=== PATIENT | male | born 1960 | race Caucasian/White ===

== ENCOUNTER 2021-11-05 15:43 | Inpatient (IN) | payer OTHER ==
[2021-11-05] MEDS ORDERED: SODIUM CHLORIDE 0.9% 1,000 ML IV STA ×2 (16:02)
[2021-11-05] MEDS ORDERED: MORPHINE SULFATE 4 MG/ML SYRINGE IVP STA (16:05)
--- NOTE | 2021-11-05 16:06 | ED ---
Dizziness HPI - General Stated Complaint: dizziness Time Seen by Provider: 11/05/21 15:43 Source: patient, family, EMS, RN notes reviewed Mode of arrival: EMS - History of Present Illness Initial Comments: This is a 61-year-old male brought in by EMS with a history of squamous cell cancer the time now with metastatic disease who presents with complaints of dizziness lightheadedness weakness The pain in the right side of his neck and head he is currently on chemotherapy. Patient does have decrease oral intake. No fall MD Complaint: dizziness, lightheadedness, other - Related Data Home Medications Medication Instructions Recorded Confirmed Acetaminophen Oral Susp [Tylenol] 640 mg PO Q4H PRN 11/05/21 11/05/21 Amitriptyline HCl [Elavil] 25 - 50 mg PO HS PRN 11/05/21 11/05/21 Morphine Sulfate Ir [MSIR] 15 mg PO Q4H PRN 11/05/21 11/05/21 fentaNYL 25MCG/HR PATCH [Duragesic 1 patch TRANSDERM Q72H 11/05/21 11/05/21 25MCG/HR] Allergies Allergy/AdvReac Type Severity Reaction Status Date / Time Penicillins Allergy Rash/Hives Verified 11/05/21 16:38 Review of Systems ROS Statement: Those systems with pertinent positive or pertinent negative responses have been documented in the HPI. ROS Other: All systems not noted in ROS Statement are negative. General Exam - General Exam Comments Initial Comments: This is a well-developed asthenic appearing male who is awake alert oriented 3 Limitations: physical limitation General appearance: alert, lethargic Head exam: Present: atraumatic, normocephalic, normal inspection Eye exam: Present: normal appearance, PERRL, EOMI. Absent: scleral icterus, conjunctival injection, periorbital swelling ENT exam: Present: mucous membranes dry Neck exam: Present: full ROM, other (Tracheostomy site patent no stridor JVD or bruits) Respiratory exam: Present: normal lung sounds bilaterally. Absent: respiratory distress, wheezes, rales, rhonchi, stridor Cardiovascular Exam: Present: regular rate, normal rhythm, normal heart sounds. Absent: systolic murmur, diastolic murmur, rubs, gallop, clicks Course Vital Signs 11/05/21 11/05/21 15:56 17:38 Temperature 98.7 F Pulse Rate 93 702 H Respiratory 18 18 Rate Blood Pressure 117/75 111/67 O2 Sat by Pulse 98 100 Oximetry EKG Findings - EKG Results: EKG: interpreted by YARITZA, sinus rhythm (Sinus rhythm 85 FL interval 155 QRS duration 97 for QTC 373/4:15 nonspecific inferior configuration no acute ST-T wave elevation or depressions) Medical Decision Making - Medical Decision Making I did reevaluate patient on multiple occasions he is not getting much pain relief the pain medicine administer thus far he still feeling weak still having right-sided head neck pain. I did discuss the findings with patient's family was also present the patient and family have elected to go on hospice care. Patient will be admitted with hospice consultation. I did discuss with Dr. De Luna who is in agreement. - Lab Data Result diagrams: 11/05/21 16:19 11/05/21 16:19 Lab Results 11/05/21 11/05/21 11/05/21 Range/Units 16:19 16:19 16:25 WBC 6.4 (3.8-10.6) k/uL RBC 4.45 (4.30-5.90) m/uL Hgb 13.5 (13.0-17.5) gm/dL Hct 40.2 (39.0-53.0) % MCV 90.4 (80.0-100.0) fL MCH 30.2 (25.0-35.0) pg MCHC 33.4 (31.0-37.0) g/dL RDW 16.9 H (11.5-15.5) % Plt Count 488 H (150-450) k/uL MPV 6.9 Neutrophils % 88 % Lymphocytes % 5 % Monocytes % 5 % Eosinophils % 1 % Basophils % 0 % Neutrophils # 5.6 (1.3-7.7) k/uL Lymphocytes # 0.3 L (1.0-4.8) k/uL Monocytes # 0.3 (0-1.0) k/uL Eosinophils # 0.0 (0-0.7) k/uL Basophils # 0.0 (0-0.2) k/uL Anisocytosis Slight Sodium 136 L (137-145) mmol/L Potassium 4.3 (3.5-5.1) mmol/L Chloride 102 (98-107) mmol/L Carbon Dioxide 21 L (22-30) mmol/L Anion Gap 13 mmol/L BUN 26 H (9-20) mg/dL Creatinine 0.85 (0.66-1.25) mg/dL Est GFR (CKD-EPI)AfAm >90 (>60 ml/min/1.73 sqM) Est GFR (CKD-EPI)NonAf >90 (>60 ml/min/1.73 sqM) Glucose 133 H (74-99) mg/dL Calcium 9.9 (8.4-10.2) mg/dL Magnesium 2.0 (1.6-2.3) mg/dL Total Bilirubin 0.7 (0.2-1.3) mg/dL AST 35 (17-59) U/L ALT 33 (4-49) U/L Alkaline Phosphatase 190 H (38-126) U/L Creatine Kinase 109 (55-170) U/L Total Protein 7.3 (6.3-8.2) g/dL Albumin 4.0 (3.5-5.0) g/dL Coronavirus (PCR) Not Detected (Not Detectd) - Radiology Data Radiology results: report reviewed (Imaging and report reviewed no evidence of acute disease.), image reviewed Disposition Clinical Impression: Metastatic squamous cell carcinoma, Dehydration, Intractable pain, Failure to thrive in adult Disposition: ADMITTED IP TO THIS HOSP Condition: Poor Referrals: Kip De Luna MD [Primary Care Provider] - 1-2 days
[2021-11-05 16:41] LABS: Anisocytosis Slight; Basophils % (A) 0 %; Eosinophils % (A) 1 %; HCT 40.2 % (39.0-53.0); HGB 13.5 gm/dL (13.0-17.5); Lymphocytes # (A) 0.3 k/uL (1.0-4.8); Lymphocytes % (A) 5 %; MCH 30.2 pg (25.0-35.0); MCHC 33.4 g/dL (31.0-37.0); MCV 90.4 fL (80.0-100.0); Mean Platelet Volume 6.9; Monocytes # (A) 0.3 k/uL (0-1.0); Monocytes % (A) 5 %; Neutrophils # (A) 5.6 k/uL (1.3-7.7); Neutrophils % (A) 88 %; Platelet Count 488 k/uL (150-450); RBC 4.45 m/uL (4.30-5.90); RDW 16.9 % (11.5-15.5); WBC 6.4 k/uL (3.8-10.6)
[2021-11-05 16:51] LABS: ALT 33 U/L (4-49); AST 35 U/L (17-59); African American GFR (CKD) >90 (>60 ml/min/1.73 sqM); Alkaline Phosphatase 190 U/L (38-126); Anion Gap 13 mmol/L; Blood Urea Nitrogen 26 mg/dL (9-20); Calcium 9.9 mg/dL (8.4-10.2); Carbon Dioxide 21 mmol/L (22-30); Chloride 102 mmol/L (98-107); Creatine Kinase 109 U/L (55-170); Glucose 133 mg/dL (74-99); Non-African American GFR(CKD) >90 (>60 ml/min/1.73 sqM); Potassium 4.3 mmol/L (3.5-5.1); Sodium 136 mmol/L (137-145); Total Bilirubin 0.7 mg/dL (0.2-1.3); Total Protein 7.3 g/dL (6.3-8.2)
--- NOTE | 2021-11-05 17:07 | XR ---
EXAMINATION TYPE: XR chest 2V DATE OF EXAM: 11/05/2021 COMPARISON: NONE HISTORY: Dizziness TECHNIQUE: 3 views FINDINGS: Heart is normal. Lungs are clear of consolidation. There are multiple surgical clips over t he left axilla. There are chest leads. There is no pleural effusion. Bony thorax is intact. IMPRESSION: No active cardiopulmonary disease. Normal heart.
[2021-11-05] MEDS ORDERED: HYDROmorphone 1 MG/ML 1 ML SYRINGE IVP STA (17:38)
[2021-11-05] MEDS ORDERED: NALOXONE 0.4 MG/ML 1 ML VIAL IV PRN (18:02)
[2021-11-05] MEDS ORDERED: AMITRIPTYLINE HCL 50 MG TAB PO PRN (18:04)
[2021-11-05] MEDS ORDERED: MORPHINE SULFATE IR 15 MG TABLET PO PRN (18:04)
[2021-11-05] MEDS ORDERED: ACETAMINOPHEN ORAL SUSP 160 MG/5 ML CUP PO PRN (18:04)
[2021-11-05] MEDS: SODIUM CHLORIDE 0.9% 1,000 ML IV SCH (18:49)
[2021-11-05] MEDS: HYDROmorphone 1 MG/ML 1 ML SYRINGE IVP PRN (21:29)
[2021-11-06] MEDS: HYDROmorphone 1 MG/ML 1 ML SYRINGE IVP PRN ×3 (02:27→10:32)
[2021-11-06 04:02] VITALS: BP 140/85; PULSE 66; RESP 20; TEMP 97.6
[2021-11-06] MEDS: SODIUM CHLORIDE 0.9% 1,000 ML IV SCH ×2 (06:05→10:35)
--- NOTE | 2021-11-06 14:34 | P.HPIM ---
History of Present Illness H&P Date: 11/06/21 Chief Complaint: vertigo, pain, weakness Osmani Son is a 61 yo M with PMH of squamous cell carcinoma of the tongue, follows with [facility], s/p radiation therapy, tracheostomy who presented to the ED via EMS with increasing pain, weakness and dizziness. He states he has not had much PO intake over the past few weeks and has no energy. Has become dizzy and unable to move around at home. He denies increased secretions though his tracheostomy. No shortness of breath, fever, chills. On presentation, vitals stable, labs significant for sodium 136, Covid negative. CXR and EKG unremarkable. Review of Systems All systems: negative Constitutional: Reports malaise, Reports weakness, Reports weight loss, Denies chills, Denies fever Eyes: denies blurred vision, denies pain Ears, nose, mouth and throat: Denies headache, Denies sore throat Cardiovascular: Denies chest pain, Denies shortness of breath Respiratory: Denies cough Gastrointestinal: Reports as per HPI, Reports loss of appetite, Denies abdominal pain, Denies diarrhea, Denies nausea, Denies vomiting Musculoskeletal: Denies myalgias Integumentary: Denies pruritus, Denies rash Neurological: Denies numbness, Denies weakness Psychiatric: Denies anxiety, Denies depression Endocrine: Denies fatigue, Denies weight change Past Medical History Additional Past Medical History / Comment(s): Tongue and throat cancer diagnosed March 2021, History of Any Multi-Drug Resistant Organisms: None Reported Additional Past Surgical History / Comment(s): Tongue removal, total laryngectomy, esophageal stoma, Past Psychological History: No Psychological Hx Reported Smoking Status: Former smoker Past Alcohol Use History: Occasional Past Drug Use History: None Reported - Past Family History Mother Family Medical History: Cancer Additional Family Medical History / Comment(s): cancer of the jr Medications and Allergies Home Medications Medication Instructions Recorded Confirmed Type Acetaminophen Oral Susp [Tylenol] 640 mg PO Q4H PRN 11/05/21 11/05/21 History Amitriptyline HCl [Elavil] 25 - 50 mg PO HS PRN 11/05/21 11/05/21 History Morphine Sulfate Ir [MSIR] 15 mg PO Q4H PRN 11/05/21 11/05/21 History fentaNYL 25MCG/HR PATCH [Duragesic 1 patch TRANSDERM Q72H 11/05/21 11/05/21 History 25MCG/HR] Allergies Allergy/AdvReac Type Severity Reaction Status Date / Time Penicillins Allergy Rash/Hives Verified 11/05/21 16:38 Physical Exam Vitals: Vital Signs Temp Pulse Pulse Resp BP BP Pulse Ox 11/06/21 04:00 97.6 F 66 20 140/85 98 11/06/21 02:15 79 16 167/91 97 11/06/21 00:00 83 16 127/72 94 L 11/05/21 22:00 92 16 119/75 95 11/05/21 21:31 80 19 101/66 97 11/05/21 18:25 86 18 124/77 97 11/05/21 17:38 70 18 111/67 100 11/05/21 15:56 98.7 F 93 18 117/75 98 Intake and Output 11/05/21 11/06/21 11/06/21 22:59 06:59 14:59 Intake Total 520 Balance 520 Intake: Intake, IV Titration 520 Amount Sodium Chloride 0.9% 1, 520 000 ml @ 130 mls/hr IV . Q7H42M FOR[facility]LY [facility], 1928–1983 Rx#:[id number] Other: Weight 78.018 kg General: thin, tracheostomy, anxious. Vitals reviewed Eyes: PERRL, EOMI, conjunctiva normal HENT: normocephalic, mucus membranes moist Neck: supple, no JVD. Trach Lungs: normal respiratory effort, no wheezes or rales CV: Regular rate and rhythm, no murmur. Peripheral pulses 2+ Abdomen: soft, nondistended, no organomegaly Lymph: no cervical or axillary LAD Skin: warm and dry. Neuro: A&Ox3, normal mood and affect Results CBC & Chem 7: 11/05/21 16:19 11/05/21 16:19 Labs: Abnormal Lab Results - Last 24 Hours (Table) 11/05/21 11/05/21 Range/Units 16:19 16:19 RDW 16.9 H (11.5-15.5) % Plt Count 488 H (150-450) k/uL Lymphocytes # 0.3 L (1.0-4.8) k/uL Sodium 136 L (137-145) mmol/L Carbon Dioxide 21 L (22-30) mmol/L BUN 26 H (9-20) mg/dL Glucose 133 H (74-99) mg/dL Alkaline Phosphatase 190 H (38-126) U/L Thrombosis Risk Factor Assmnt - Choose All That Apply Each Risk Factor Represents 2 Points: Age 61-74 years Thrombosis Risk Factor Assessment Total Risk Factor Score: 2 Thrombosis Risk Factor Assessment Level: Low Risk Assessment and Plan Plan: 1. Squamous cell carcinoma of tongue, metastatic. Discussed options and prognosi s with pt. He has discussed with his regular oncologist as well. Pt elects for home hospice. Hospice consult. Social work for discharge planning. Continue with fentanyl patch
--- NOTE | 2021-11-06 16:07 | P.DS ---
Providers Date of admission: 11/05/21 18:04 Expected date of discharge: 11/06/21 Attending physician: Kip De Luna MD Primary care physician: Kip De Luna MD Hospital Course: Final Diagnoses: Squamous cell carcinoma of tongue, metastatic. Discussed options and prognosis with pt. He has discussed with his regular oncologist as well. Pt elects for home hospice. Hospice consult. Social work for discharge planning. Continue with fentanyl patch. Hospital course:Osmani Son is a 61 yo M with PMH of squamous cell carcinoma of the tongue, follows with [facility], s/p radiation therapy, tracheostomy who presented to the ED via EMS with increasing pain, weakness and dizziness. He states he has not had much PO intake over the past few weeks and has no energy. Has become dizzy and unable to move around at home. He denies increased se cretions though his tracheostomy. No shortness of breath, fever, chills. On presentation, vitals stable, labs significant for sodium 136, Covid negative. CXR and EKG unremarkable. Patient and met with hospice. Patient will be discharged home today, in a stable condition with guarded prognosis, opening to hospice. The impression and plan of care has been dictated as directed. Dr.: I performed a history and examination of this patient, discussed the same with the dictator. I agree with the dictator's note ,documented as a scribe. Any additional findings or plans will be noted. Patient Condition at Discharge: Stable Plan - Discharge Summary New Discharge Prescriptions: No Action fentaNYL 25MCG/HR PATCH [Duragesic 25MCG/HR] 1 patch TRANSDERM Q72H Morphine Sulfate Ir [MSIR] 15 mg PO Q4H PRN PRN Reason: Pain Amitriptyline HCl [Elavil] 25 - 50 mg PO HS PRN PRN Reason: SLEEP Acetaminophen Oral Susp [Tylenol] 640 mg PO Q4H PRN PRN Reason: Pain Or Fever > 100.5 Discharge Medication List Acetaminophen Oral Susp [Tylenol] 640 mg PO Q4H PRN 11/05/21 [History] Amitriptyline HCl [Elavil] 25 - 50 mg PO HS PRN 11/05/21 [History] Morphine Sulfate Ir [MSIR] 15 mg PO Q4H PRN 11/05/21 [History] fentaNYL 25MCG/HR PATCH [Duragesic 25MCG/HR] 1 patch TRANSDERM Q72H 11/05/21 [History] Follow up Appointment(s)/Referral(s): Kip De Luna MD [Primary Care Provider] - As Needed (Patient discharging home with Hospice. Appt. not scheduled. ) [facility], [NON-STAFF] - 11/06/21 11:00 am Patient Instructions/Handouts: Hospice (DC), Narcotic Safety (DC) Activity/Diet/Wound Care/Special Instructions: Activity as tolerated. Diet as tolerated. Discharge Disposition: HOME WITH HOSPICE
== END 2021-11-06 14:50 | disposition hospice, home (50) | DRG 147 ==
LOC: EC 15:43 → 5NMEDONC 18:04
PROVIDERS: ADMIT Family Medicine; ATTEND Family Medicine
DX: C02.9 Malignant neoplasm of tongue, unspecified (principal); C79.89 Secondary malignant neoplasm of other specified sites; C14.0 Malignant neoplasm of pharynx, unspecified; E86.0 Dehydration; R62.7 Adult failure to thrive; Z20.822 Contact with and (suspected) exposure to COVID-19; Z51.5 Encounter for palliative care; Z85.810 Personal history of malignant neoplasm of tongue; Z87.891 Personal history of nicotine dependence; Z92.3 Personal history of irradiation; Z88.0 Allergy status to penicillin
CPT/HCPCS: 36415; 71046; 80053; 82550; 83735; 85025; 87635; 93005; 96361; 96374; 96375; 96376; 99285